=== PATIENT | male | born 1960 | race Caucasian/White ===

== ENCOUNTER 2016-09-11 18:58 | Emergency (ER) | payer OTHER ==
[~2016-09-11] VITALS: Ht 177.8 cm; Wt 96.0 kg
[~2016-09-11 18:58] MED LIST: GLIPIZIDE XL10 MG PO; HYDROMORPHONE HC4 MG PO; LO-DOSE ASPIRIN81 M2 PO; METFORMIN HCL1000 MG PO; METFORMIN HCL500 MG PO; ZOCOR20 MG PO; ZOLPIDEM TARTRAT5 MG PO
[2016-09-11] MEDS ORDERED: METFORMIN HCL1000 MG PO (19:26)
[2016-09-11 20:47] VITALS: BP 139/75
== END 2016-09-11 20:47 | disposition home or self-care (01) ==
LOC: EME 18:58 → EXP 18:58
DX: S80.12XA Contusion of left lower leg, initial encounter (principal); S20.211A Contusion of right front wall of thorax, initial encounter; S50.00XA Contusion of unspecified elbow, initial encounter; Y93.55 Activity, bike riding; V18.0XXA Pedal cycle driver injured in noncollision transport accident in nontraffic accident, initial encounter; Z87.891 Personal history of nicotine dependence; I10 Essential (primary) hypertension; E78.5 Hyperlipidemia, unspecified; E11.9 Type 2 diabetes mellitus without complications; Z79.84 Long term (current) use of oral hypoglycemic drugs; Z79.82 Long term (current) use of aspirin
CPT/HCPCS: 71010; 73080; 73590; 99281; 99283

== ENCOUNTER → 2017-01-12 | Outpatient (CLI) | payer OTHER | END | disposition home or self-care (01) | LOC: RAD 15:00 | DX: K57.32 Diverticulitis of large intestine without perforation or abscess without bleeding (principal); K76.0 Fatty (change of) liver, not elsewhere classified; E27.9 Disorder of adrenal gland, unspecified | CPT/HCPCS: 74178 ==

== ENCOUNTER → 2017-02-03 | Outpatient (CLI) | payer OTHER | END | disposition home or self-care (01) | LOC: RES 02-01 09:00 | DX: J98.4 Other disorders of lung (principal); R06.09 Other forms of dyspnea; Z87.891 Personal history of nicotine dependence | CPT/HCPCS: 94060; 94726; 94729 ==